=== PATIENT | male | born 1965 | race Native Hawaiian/Other Pacific Islander ===

== ENCOUNTER 2017-03-15 17:01 | Emergency (ER) | payer OTHER ==
[~2017-03-15 17:01] MED LIST: LISI-363 PO; NAPR550 PO; ROBA750T3 PO
[2017-03-15 17:03] VITALS: BP 145/90; PULSE 74; RESP 16; TEMP 98.2; O2SAT 98
[2017-03-15] MEDS ORDERED: IBUP1TAB7 PO (17:30)
--- NOTE | 2017-03-15 17:30 | PD ---
HPI Chief Complaint: Injury Time Seen by Provider: 17:25 Travel History International Travel<30 days: No Contact w/Intl Traveler<30days: No Traveled to known affect area: No History of Present Illness HPI 51-year-old male presents to the emergency department complaining of posterior right knee pain after hearing a "pop" while walking fast at work today. Denies traumatic injury. Denies paresthesias, loss of sensation, decreased range of motion to the affected extremity. Says he's having difficulty ambulating on the affected extremity. Denies fever, vomiting. Took Aleve for symptom management. Rates pain 0/10 while at rest. Rates pain 10/10 with ambulation. Pain is worse with ambulation and flexion. Has no other medical complaints. No known allergies. No other modifying factors or associated signs and symptoms. PFSH Social History Tobacco Use: No Allergies-Medications (Allergen,Severity, Reaction): Coded Allergies: No Known Allergies (Verified Adverse Reaction, Unknown, 03/15/17) Reported Meds & Prescriptions Reported Meds & Active Scripts Active Ibuprofen 800 Mg Tab 800 Mg PO Q6HR PRN Robaxin-750 (Methocarbamol) 750 Mg Tab 750 Mg PO QIDPRN Anaprox Ds (Naproxen Sodium) 550 Mg Tab 550 Mg PO BID Reported Lisinopril 20 mg (Lisinopril) 20 Mg Tab 20 Mg PO DAILY Review of Systems Except as stated in HPI: all other systems reviewed are Neg Physical Exam Narrative GENERAL: Well-nourished, well-developed male patient, in no acute distress; afebrile, nontoxic-appearing SKIN: Warm and dry. HEAD: Atraumatic. Normocephalic. EYES: Pupils equal and round. No scleral icterus. No injection or drainage. ENT: Mucosa pink and moist. Airway patent. NECK: Trachea midline. CARDIOVASCULAR: Regular rate. RESPIRATORY: No accessory muscle use. GASTROINTESTINAL: Obese. MUSCULOSKELETAL: Right knee nonedematous, nonerythematous, and without ecchymosis; full range of motion and flexion to 90; point tenderness to the posterior aspect; joint stable with negative drawer test; no obvious deformity. Right Lower extremity is supple and non-tense with 2+ pedal pulse and sensory intact and without erythema or edema. No edema. No cyanosis. NEUROLOGICAL: Awake and alert. Oriented 3. No obvious cranial nerve deficits. Motor grossly within normal limits. Normal speech. PSYCHIATRIC: Appropriate mood and affect; insight and judgment normal. Data Data Last Documented VS Vital Signs Date Time Temp Pulse Resp B/P (MAP) Pulse Ox O2 Delivery O2 Flow Rate FiO2 03/15/17 17:03 98.2 74 16 145/90 (108) 98 Orders Orders Knee, Complete (4vws) (03/15/17 17:24) Crutches (03/15/17 17:38) MDM Medical Decision Making Medical Screen Exam Complete: Yes Emergency Medical Condition: Yes Medical Record Reviewed: Yes Differential Diagnosis Bursitis, arthritis, knee strain, less likely fracture or dislocation Narrative Course 51-year-old male with right knee pain. Denies traumatic injury. Incident occurred while at work and patient is requesting x-ray because it is work- related. I do not suspect fracture or dislocation and feel that imaging is not necessary and I did discuss with the patient. Patient took Aleve prior to arrival. Right knee x-ray ordered. 1814: Right knee x-ray is no acute findings. X-ray findings discussed with the patient. Ceasar bandage and crutches provided for support. Instructed patient to follow up with orthopedics if symptoms persist greater than 7-10 days. Instructed patient to follow up with primary care provider. Patient verbalizes understanding and agreement with treatment plan. Patient is medically cleared and stable for discharge. Discussed reasons to return to the emergency department. Patient agrees with treatment plan. The patients vital signs are stable and the patient is stable for outpatient follow-up and treatment. Patient discharged home, stable and in no acute distress. Diagnosis Primary Impression: Right knee pain Qualified Codes: M25.561 - Pain in right knee Referrals: Orthopedist Primary Care Physician Patient Instructions: General Instructions, Knee Pain (ED) Additional Instructions: Tylenol or ibuprofen as needed and as directed to reduce pain and inflammation Rest, ice, compress, and elevate extremity to decrease pain and inflammation Knee brace for support Crutches, cane for support Avoid aggravating activity; increase activity as tolerated Follow-up with primary care provider Follow-up with orthopedics Return to the emergency department immediately with worsening symptoms Med/Other Pt SpecificInfo: Prescription(s) given Scripts Ibuprofen (Ibuprofen) 800 Mg Tab 800 MG PO Q6HR Y for PAIN, #30 TAB 0 Refills Prov: Carmen Back 03/15/17 Disposition: 01 DISCHARGE HOME Condition: Stable Carmen Back Mar 15, 2017 17:30
--- NOTE | 2017-03-15 18:12 | RADRPT ---
EXAM DATE/TIME: 03/15/2017 17:48 [facility] COMPARISON: No previous studies available for comparison. INDICATIONS : Popping in right knee MEDICAL HISTORY : None. SURGICAL HISTORY : None. ENCOUNTER: Initial ACUITY: 1 day PAIN SCORE: 10/10 LOCATION: Right Knee. FINDINGS: Four view examination of the right knee demonstrates no evidence of fracture or dislocation. Bony mi neralization is normal. The articular surfaces are intact. The suprapatellar soft tissues have a no rmal configuration. CONCLUSION: Unremarkable examination of the right knee. James Early MD on March 15, 2017 at 18:10 Board Certified Radiologist. This report was verified electronically.
== END 2017-03-15 18:31 | disposition home or self-care (01) ==
LOC: NEPK 17:01
DX: M25.561 Pain in right knee (principal)
CPT/HCPCS: 73564; 99283; E0113